=== PATIENT | male | born 1940 | race African-American/Black ===

== ENCOUNTER 2017-02-10 06:31 | Day surgery (SDC) | payer OTHER ==
--- NOTE | ~2017-02-10 | EGD ---
EGD REPORT [facility] [address] [place] [place] [address] NAME: MAURICE BENZ JR : 44 STATUS : REG [facility]#: [id number] AGE: 76 ADM/REG DATE : 02/10/17 MR#: [id number] REPORT SERV DATE: 02/10/17 DICTATED BY: NICK OH DATE: 02/10/17 REPORT STATUS : Draft [facility]ANS[facility]IBED BY: [facility] DATE: 02/10/17 [facility] Patient Name: Maurice Benz Date of : 1940 Attending MD: NICK OH MD Procedure Date No Time: 02/10/2017 Procedure: Colonoscopy Indications: High risk colon cancer surveillance: Personal history of non-advanced adenoma; last exam 2012. Patient Profile: Informed consent was obtained from the patient by me prior to the procedure. Risks, benefits, and alternatives were discussed including the risk of bleeding, perforation, infection, reaction to medicine, missed lesion, and cardiopulmonary complications. Referring MD: RAMIRO PERSON Medicines: Monitored Anesthesia Care Complications: No immediate complications. Procedure: Pre-Anesthesia Assessment: - ASA Grade Assessment: III - A patient with severe systemic disease. After I obtained informed consent, the scope was passed under direct vision. Throughout the procedure, the patient's blood pressure, pulse, and oxygen saturations were monitored continuously. The PCF [id number] was introduced through the anus and advanced to the cecum, identified by appendiceal orifice and ileocecal valve. The colonoscope was slowly withdrawn with careful examination all mucosal surfaces including specific attention around flexures and tip deflection behind folds; retroflexion performed in rectum. The colonoscopy was performed without difficulty. The patient tolerated the procedure well. The quality of the bowel preparation was adequate. The ileocecal valve, appendiceal orifice and rectum were photographed. Findings: Five sessile polyps were found in the transverse colon. The polyps were 5 to 8 mm in size. These polyps were removed with a cold snare. Resection and retrieval were complete. Two flat polyps were found in the transverse colon. The polyps were 5 mm in size. These polyps were removed with a cold biopsy forceps. Resection and retrieval were complete. Three flat polyps were found in the descending colon. The polyps were 5 to 7 mm in size. These polyps were removed with a cold snare. Resection and retrieval were complete. EGD REPORT [address] [place]. [address] NAME: MAURICE BENZ JR : 44 STATUS : REG [facility] PAT#: [id number] AGE: 76 ADM/REG DATE : 02/10/17 MR#: [id number] REPORT SERV DATE: 02/10/17 DICTATED BY: NICK OH DATE: 02/10/17 REPORT STATUS : Draft TRANSCRIBED BY: [employer] DATE: 02/10/17 A flat polyp was found in the descending colon. The polyp was 5 mm in size. The polyp was removed with a cold biopsy forceps. Resection and retrieval were complete. Two flat polyps were found in the sigmoid colon. The polyps were 5 mm in size. These polyps were removed with a cold biopsy forceps. Resection and retrieval were complete. A few small-mouthed diverticula were found in the sigmoid colon. Inverted diverticulum at 40cm, as previous. Impression: - Five 5 to 8 mm polyps in the transverse colon. Resected and retrieved. - Two 5 mm polyps in the transverse colon. Resected and retrieved. - Three 5 to 7 mm polyps in the descending colon. Resected and retrieved. - One 5 mm polyp in the descending colon. Resected and retrieved. - Two 5 mm polyps in the sigmoid colon. Resected and retrieved. - Diverticulosis in the sigmoid colon. Recommendation: - Patient has a contact number available for emergencies. The signs and symptoms of potential delayed complications were discussed with the patient. Return to normal activities tomorrow. Written discharge instructions were provided to the patient. - Regular diet. - Continue present medications. - Await pathology results. - Repeat colonoscopy for surveillance based on pathology results. Procedure Code(s): --- Professional --- 04195, Colonoscopy, flexible, proximal to splenic flexure; with removal of tumor(s), polyp(s), or other lesion(s) by snare technique 56065, 59, Colonoscopy, flexible, proximal to splenic flexure; with biopsy, single or multiple Diagnosis Code(s): --- Professional --- D12.5, Benign neoplasm of sigmoid colon D12.4, Benign neoplasm of descending colon D12.3, Benign neoplasm of transverse colon K57.30, Diverticulosis of large intestine without perforation or abscess without bleeding Z86.010, Personal history of colonic polyps EGD REPORT [facility] [address] [place] [address] NAME: MAURICE BENZ : 44 STATUS : REG [facility] PAT#: [id number] AGE: 76 ADM/REG DATE : 02/10/17 MR#: [id number] REPORT SERV DATE: 02/10/17 DICTATED BY: NICK OH. DATE: 02/10/17 REPORT STATUS : Draft TRANSCRIBED BY: [employer] DATE: 02/10/17 CPT copyright 2013 [employer]. All rights reserved. The codes documented in this report are preliminary and upon fuller brush man review may be revised to meet current compliance requirements. NICK OH MD 02/10/2017 8:48 AM This report has been signed electronically. Number of Addenda: 0 Note Initiated On: 02/10/2017 7:57 AM Scope Withdrawal Time 0 hours 24 minutes 32 seconds [address] [address]
[~2017-02-10 06:31] MED LIST: ADALAT CC90 MG PO; ANOROELLIPTA INH; ASAB PO; AVODART PO; CELEXA40 MG PO; COMBIVENT INH; COREG12 PO; CRESTOR20 MG PO; FLOMAX4 PO; IBU-200200 MG PO; IMDUR30 PO; MIRAPEX250 PO; NAP375 PO; NITROSTAT0.4 MG SL; PRAV10 PO; PRIN10 PO; PRIN5 PO; PROAIR HFA INH; PROTONIX PO; SPIRO50 PO; X25 PO; ZOCOR5 MG PO
[2017-04-03] MEDS ORDERED: IMDUR30 PO (12:20)
[2017-04-03] MEDS ORDERED: COREG12 PO (12:20)
[2017-04-03] MEDS ORDERED: SPIRO50 PO (12:21)
[2017-04-03] MEDS ORDERED: NITROSTAT0.4 MG SL (12:21)
[2017-04-03] MEDS ORDERED: CRESTOR20 MG PO (12:21)
[2017-04-03] MEDS ORDERED: MIRAPEX250 PO (12:22)
[2017-04-03] MEDS ORDERED: FLOMAX4 PO (12:22)
[2017-04-03] MEDS ORDERED: ASABAYER PO (12:22)
[2017-04-03] MEDS ORDERED: X25 PO (12:23)
[2017-04-03] MEDS ORDERED: ADALAT CC90 MG PO (12:23)
[2017-04-03] MEDS ORDERED: PROAIR HFA INH (12:24)
[2017-04-03] MEDS ORDERED: SYMBICORT 160/41 INH INH (12:24)
[2017-04-03] MEDS ORDERED: PLAVIX PO (12:27)
[2017-04-03] MEDS ORDERED: L40 PO (12:28)
[2017-04-03] MEDS ORDERED: K-TABS10 MEQ PO (12:29)
[2017-04-03] MEDS ORDERED: NASACORTAQ NAS (12:39)
== END 2017-02-10 23:59 | disposition home or self-care (01) ==
LOC: DMU 06:31
PROVIDERS: Internal Medicine Gastroenterology
PROC: 0DBM8ZZ Excision of Descending Colon, Via Natural or Artificial Opening Endoscopic (ICD-10-PCS; 2017-02-10)
PROC: 0DBL8ZZ Excision of Transverse Colon, Via Natural or Artificial Opening Endoscopic (ICD-10-PCS; principal; 2017-02-10 08:00)
PROC: 0DBN8ZZ Excision of Sigmoid Colon, Via Natural or Artificial Opening Endoscopic (ICD-10-PCS; 2017-02-10 08:00)
DX: Z12.11 Encounter for screening for malignant neoplasm of colon (principal); D12.3 Benign neoplasm of transverse colon; D12.4 Benign neoplasm of descending colon; K63.5 Polyp of colon; K57.30 Diverticulosis of large intestine without perforation or abscess without bleeding; F17.210 Nicotine dependence, cigarettes, uncomplicated; J44.9 Chronic obstructive pulmonary disease, unspecified; I25.10 Atherosclerotic heart disease of native coronary artery without angina pectoris; H91.90 Unspecified hearing loss, unspecified ear; E78.00 Pure hypercholesterolemia, unspecified; I11.0 Hypertensive heart disease with heart failure; I50.9 Heart failure, unspecified; I25.2 Old myocardial infarction; I73.9 Peripheral vascular disease, unspecified; M19.90 Unspecified osteoarthritis, unspecified site; K21.9 Gastro-esophageal reflux disease without esophagitis; F41.9 Anxiety disorder, unspecified; Z95.810 Presence of automatic (implantable) cardiac defibrillator; Z86.010 Personal history of colon polyps; Z98.42 Cataract extraction status, left eye; Z95.1 Presence of aortocoronary bypass graft; Z98.41 Cataract extraction status, right eye; Z95.5 Presence of coronary angioplasty implant and graft; Z96.1 Presence of intraocular lens; Z98.890 Other specified postprocedural states; Z79.899 Other long term (current) drug therapy; Z79.82 Long term (current) use of aspirin
CPT/HCPCS: 88305